=== PATIENT | male | born 1955 ===

== ENCOUNTER 2023-01-17 08:55 | Day surgery (SDC) | payer MEDICARE ==
[2023-01-11 13:10] VITALS: BMI 38.5
[2023-01-11 13:29] LABS: #Eosinphils 0.1 10x3/uL (0.0-0.5); #Monocytes 0.5 10x3/uL (0.0-1.1); #Neutrophils 3.4 10x3/uL (1.5-8.4); %Basophils 0.8 % (0.0-2.0); %Eosinophils 2.1 % (0.0-6.0); %Lymphocytes 20.4 % (18.0-47.0); %Monocytes 10.4 % (0.0-10.0); %Neutrophils 65.5 % (40.0-75.0); Hematocrit 47.4 % (38.8-50.0); Hemoglobin 15.2 g/dL (13.5-17.5); Mean Corpuscular HGB CONC 32.1 g/dL (32.0-36.0); Mean Corpuscular Hemoglobin 26.3 pg (27.0-33.0); Mean Corpuscular Volume 82.1 fl (81.2-95.1); Mean Platelet Volume 10.9 fl (7.4-10.4); Platelet Count 241 10x3/uL (150-450); RBC Distribution Width 15.5 % (11.5-14.5); Red Blood Cell (RBC) Count 5.77 10x6/uL (4.32-5.72); White Blood Cell (WBC) Count 5.2 10x3/uL (3.5-10.5)
[2023-01-11 13:59] LABS: INR-International Normal Ratio 1.1; Prothrombin Time 11.4 sec (9.5-12.1)
[2023-01-11 14:08] LABS: Anion Gap 16 mmol/L (10-20); BUN (Urea Nitrogen) 17 mg/dL (8.4-25.7); Calc. Creatinine Clearance 151 mL/min (70-130); Calcium 9.1 mg/dL (7.8-10.44); Carbon Dioxide 22 mmol/L (23-31); Chloride 104 mmol/L (98-107); Estimated GFR 90; Glucose 104 mg/dL (80-115); Potassium 4.2 mmol/L (3.5-5.1); Sodium 138 mmol/L (136-145)
[2023-01-17] MEDS ORDERED: Heparin 10,000 UNITS/ 10 ML VIAL ONE ×2 (10:00→11:51)
[2023-01-17] MEDS ORDERED: Heparin 25,000 units/D5W 500 ML ONE (10:00)
[2023-01-17] MEDS ORDERED: fentaNYL PF 100 MCG/2 ML SYRINGE ONE (10:46)
[2023-01-17] MEDS ORDERED: Iopamidol 370 76% 100 ML VIAL ONE (10:46)
[2023-01-17] MEDS ORDERED: PROPOFOL 200 MG/20 ML VIAL ONE (11:02)
[2023-01-17] MEDS ORDERED: Ondansetron PF 4 MG/2 ML Vial ONE (11:02)
[2023-01-17] MEDS ORDERED: Rocuronium Bromide 10 MG/ML (10ML VIAL) ONE (11:02)
[2023-01-17] MEDS ORDERED: Protamine Sulfate 50 MG/5 ML VIAL ONE (11:51)
[2023-01-17] MEDS ORDERED: Dehydrated Alcohol 99% 5 ML VIAL ONE (12:00)
[2023-01-17] MEDS ORDERED: fentaNYL 50 mcg/mL 1 mL Vial ONE ×2 (14:51→15:35)
== END 2023-01-17 16:50 | disposition home or self-care (01) ==
LOC: SDC 08:55
PROVIDERS: ATTEND Internal Medicine Cardiovascular Disease
DX: I48.19 Other persistent atrial fibrillation (principal); I48.0 Paroxysmal atrial fibrillation; I34.0 Nonrheumatic mitral (valve) insufficiency; I11.0 Hypertensive heart disease with heart failure; I51.7 Cardiomegaly; Z79.01 Long term (current) use of anticoagulants; Z87.891 Personal history of nicotine dependence; Z79.899 Other long term (current) drug therapy
CPT/HCPCS: 80048; 85025; 85347 ×2; 85610; 93005; 93312; 93656; 93657; C1732; C1759; C1760; C1769 ×2; C1894 ×3; C2630; J3010; 93010; J1644; J2405; J2704; J2720